=== PATIENT | male | born 1980 | race Caucasian/White ===

== ENCOUNTER 2020-01-20 10:26 | Emergency (ER) | payer SELFPAY ==
--- NOTE | ~2020-01-20 | XR_ITS ---
XR foot RT min 3V DATE: 01/20/2020 11:32 INDICATION: Plantar laceration between fourth and fifth metatarsals. Evaluate for foreign body. TECHNIQUE: 4 views COMPARISON: None FINDINGS: There is hallux valgus deformity. No fracture or dislocation, periosteal reaction or bone destruction. No radiopaque foreign body or norton bcutaneous emphysema is identified. IMPRESSION: No radiopaque foreign body Reviewed, dictated and finalized at location A. IMPRESSION: No radiopaque foreign body
[2020-01-20 10:56] VITALS: BP 137/82; PULSE 107; RESP 19; TEMP 36.7; O2SAT 99
--- NOTE | 2020-01-20 11:06 | ED.EXTPRO ---
HPI - Extremity Problem General Chief complaint: Extremity Problem,Nontraumatic Stated complaint: R foot Pain Time Seen by Provider: 01/20/20 11:06 Source: patient Mode of arrival: ambulatory Limitations: no limitations History of Present Illness HPI Narrative: 39-year-old man comes in today complaining of right lateral foot pain that started in the last few days. Patient denies any injury. He states it feels like it is swollen and he noticed some blood and what looks like a wound on the bottom of his foot. He has had no night sweats, fever, animal exposures, history of diabetes or prior similar issues. Complaint: extremity pain Onset (ago): day(s) Pain Consistency: constant Location: right and other (foot) Quality: sharp Radiation: none Relieving factors: rest Exacerbating factors: weight bearing Related Data Allergies Allergy/AdvReac Type Severity Reaction Status Date / Time No Known Allergies Allergy Verified 01/20/20 10:56 Review of Systems Review of Systems: All systems reviewed & are unremarkable except as noted in HPI and below Constitutional: Constitutional: Reports chills and Reports fever(s) Eyes: Eyes: Denies change in vision and Denies photophobia ENT: Denies dysphagia, Denies nasal congestion and Denies sore throat Cardiovascular: Cardiovascular: Denies chest pain and Denies radiating jaw, neck or arm pain Respiratory: Respiratory: Denies cough, Denies dyspnea and Denies wheezing Gastrointestinal: Gastrointestinal: Denies abdominal pain, Denies diarrhea, Denies nausea and Denies vomiting Integumentary/Breasts: Skin/Breast: Denies pruritus, Denies erythema and Denies rash Neurologic: Denies vertigo, Denies dizziness and Denies syncope Hematologic/Lymphatic: Hematologic/Lymphatic: Denies easy bleeding and Denies easy bruising Allergic/Immunologic: Allergic/Immunologic: Denies lip swelling and Denies wheezing PMFSH Surgical History Surgical History Inguinal abscess Social History Social History (Updated 01/20/20 @ 11:40 by Rell Herman MD) Smokeless tobacco user: chewing tobacco Alcohol intake: former Substance use: former Living arrangements: with family Exam Const: General: healthy appearing, no acute distress and alert Orientation/consciousness: patient oriented x3 HENMT: Mouth: Yes moist mucous membranes Eyes: Conjunctivae: conjunctivae normal Pupils: Equal, round and reactive pupils present EOM: EOMs intact bilaterally Resp: Effort & Inspection: normal respiratory effort and not labored Auscultation: clear to auscultation bilaterally, no rales, no rhonchi and no wheezes Cardio: Rate: regular rate Rhythm: regular rhythm Heart sounds: no murmurs Skin: General skin exam: normal color, no jaundice and no pallor Rashes: no rashes Other: 3 cm linear wound on the lateral aspect of the right sole distally that almost appears as a skin fold But has a small amount of crusted blood proximally. There is tenderness proximal to the wound but no tenderness over the metatarsals dorsal or plantar and there is no erythema. Distal neurovascular exam is intact. Neuro: General: patient oriented x3, moves all extremities, no focal motor deficits and CN's II-XI intact bilaterally Extrem: General: normal to inspection and no clubbing, cyanosis or edema Psych: Appearance: grossly normal and well kempt Mental Status: mental status grossly normal Affect: normal affect Attitude: cooperative Thought content: Yes Normal thought content present Course Vital Signs Vital signs: Vital Signs Temperature 36.7 C 01/20/20 10:56 Pulse Rate 107 H 01/20/20 10:56 Respiratory Rate 19 01/20/20 10:56 Blood Pressure 137/82 01/20/20 10:56 Pulse Oximetry 99 01/20/20 10:56 Temperature 36.7 C 01/20/20 10:56 Pulse Rate 107 H 01/20/20 10:56 Respiratory Rate 19 01/20/20 10:56 Blood Pressure 137/82 01/20/20
[2020-01-20 11:53] VITALS: RESP 16
== END 2020-01-20 11:53 | disposition home or self-care (01) ==
PROVIDERS: Emergency Provider Emergency Medicine
DX: S91.301A Unspecified open wound, right foot, initial encounter (principal)
CPT/HCPCS: 73630; 99283